=== PATIENT | male | born 1955 | race Caucasian/White ===

== ENCOUNTER → 2022-01-16 | Outpatient (CLI) | payer OTHER, MEDICARE ==
[~2022-01-16] MED LIST: ALEVE220 M1 PO; ASPIRIN81 M2 PO; CALAN SR240 MG PO; DAILY VITAMIN1 EAC5 PO; DAILY VITAMIN1 EACH PO; DIPHENHYDRAMINE25 M3 PO; FLOMAX0.4 MG PO; IRON325 PO; LISINOPRIL10 MG PO; NORCO 5-325 TA1 EACH PO; PACERONE 200 M200 M1 PO; PERCOCET PO; PREDNISONE 10 M10 MG PO; PRILOSEC20 MG PO; TOPROL XL50 MG PO; TRIAMCINOLONE A80 G2 TOP; TYLENOL325 MG PO; VITAMIN C500 M1 PO; VITAMIN D2000 UNI1 PO; VITAMIN E400 UNI2 PO; ZOCOR 10 MG TAB10 MG PO
== END ==
LOC: SJCVC 09:22
PROVIDERS: ATTEND Internal Medicine
DX: I48.91 Unspecified atrial fibrillation (principal); R94.31 Abnormal electrocardiogram [ECG] [EKG]; R06.00 Dyspnea, unspecified; I25.10 Atherosclerotic heart disease of native coronary artery without angina pectoris; E78.5 Hyperlipidemia, unspecified; Z98.890 Other specified postprocedural states; Z88.8 Allergy status to other drugs, medicaments and biological substances; Z79.82 Long term (current) use of aspirin; Z79.899 Other long term (current) drug therapy; J44.9 Chronic obstructive pulmonary disease, unspecified; Z98.61 Coronary angioplasty status; Z87.891 Personal history of nicotine dependence